=== PATIENT | male | born 1975 | race Caucasian/White ===

== ENCOUNTER 2016-07-31 19:38 | Emergency (ER) | payer OTHER ==
[2016-07-31 19:50] VITALS: PULSE 68; BMI 23.3
--- NOTE | 2016-07-31 20:11 | PDOC ---
History of Present Illness - General History Source: Patient - History of Present Illness Initial Comments: 07/31/16 21:18 The patient is a 40 year old male with no significant past medical history, who presents to the ER s/p falling off a ladder this morning. Patient reports he was standing on a ladder while painting his kitchen crow. He states as he was leaning to one side, the ladder tipped and patient fell on top of the ladder. Patient says he sustained an abrasion on the anterior chest wall. Denies loss of consciousness Denies head or neck trauma Denies dizziness Denies nausea, vomiting Denies active bleeding <UtrubyArabella - Last Filed: 07/31/16 21:17> - General History Source: Patient <John Wheeler - Last Filed: 07/31/16 21:39> - General Chief Complaint: Injury Stated Complaint: FALL/INJURY Time Seen by Provider: 07/31/16 20:06 Past History <Utruby,Arabella - Last Filed: 07/31/16 21:17> - Immunization History Immunization Up to Date: Yes - Psycho/Social/Smoking Cessation Hx Anxiety: No Suicidal Ideation: No Smoking Status: No Smoking History: Never smoked Number of Cigarettes Smoked Daily: 0 Hx Alcohol Use: No Substance Use Type: None <John Wheeler - Last Filed: 07/31/16 21:39> - Past Medical History Allergies/Adverse Reactions: Allergies Allergy/AdvReac Type Severity Reaction Status Date / Time No Known Allergies Allergy Verified 07/31/16 20:50 Home Medications: Ambulatory Orders NK [No Known Home Medication] 07/31/16 Review of Systems - Review of Systems Able to Perform ROS?: Yes Comments:: 07/31/16 21:18 CONSTITUTIONAL: Absent: fever, no chills, no fatigue EYES: Absent: visual changes ENT: Absent: ear pain, no sore throat CARDIOVASCULAR: Absent: chest pain, no palpitations RESPIRATORY: Absent: cough, no SOB GI: Absent: abdominal pain, no nausea, no vomiting, no constipation, no diarrhea GENITOURINARY: Absent: dysuria, no frequency, no hematuria MUSCULOSKELETAL: Absent: back pain, no arthralgia, no myalgia SKIN: Present: (+) abrasion on anterior chest wall Absent: rash NEURO: Absent: headache <Uts,Arabella - Last Filed: 07/31/16 21:17> *Physical Exam - Vital Signs Last Vital Signs Temp Pulse Resp BP Pulse Ox 98.7 F 68 18 117/60 98 07/31/16 19:48 07/31/16 19:48 07/31/16 19:48 07/31/16 19:48 07/31/16 19:48 - Physical Exam Comments: 07/31/16 21:18 GENERAL: Well-appearing, well-nourished. No apparent distress. HEENT: Normocephalic, atraumatic. PERRL, EOM intact. CARDIOVASCULAR: Normal S1, S2. Regular rate and rhythm. PULMONARY: Clear to auscultation bilaterally. ABDOMEN: Soft, non-distended, non-tender. EXTREMITIES: Normal ROM in all four extremities. No gross deformities. SKIN: Superficial abrasion on anterior lower left ribs NEUROLOGICAL: No focal neurological deficits. <Arabella Hope - Last Filed: 07/31/16 21:17> - Vital Signs Last Vital Signs Temp Pulse Resp BP Pulse Ox 98.7 F 68 18 117/60 98 07/31/16 19:48 07/31/16 19:48 07/31/16 19:48 07/31/16 19:48 07/31/16 19:48 <John Wheeler - Last Filed: 07/31/16 21:39> Medical Decision Making - Medical Decision Making 07/31/16 21:39 Dr. Wheeler: The scribe's documentation has been prepared under my direction and personally reviewed by me in its entirery. I confirm that the note above accurately reflects all work, treatment, procedures, and medical decision making performed by me. <John Wheeler - Last Filed: 07/31/16 21:39> *DC/Admit/Observation/Transfer - Attestations Scribe Attestion: 07/31/16 21:19 Documentation prepared by Arabella Hope, acting as medical records field technician for John Wheeler DO. <Arabella Hope - Last Filed: 07/31/16 21:17> - Discharge Dispostion Admit: No <John Wheeler - Last Filed: 07/31/16 21:39> Diagnosis at time of Disposition: Contusion of left chest wall Qualifiers: Encounter type: initial encounter Qualified Code(s): S20.212A - Contusion of left front wall of thorax, initial encounter - Discharge Dispostion Disposition: HOME Condition at time of disposition: Stable - Patient Instructions Printed Discharge Instructions: DI for Chest Pain, DI for Rib Contusion
[2016-07-31 21:52] VITALS: BP 118/64; TEMP 98.4
--- NOTE | 2016-08-05 11:43 | EKG ---
Test Reason : Blood Pressure : / mmHG Vent. Rate : 052 BPM Atrial Rate : 052 BPM P-R Int : 120 ms QRS Dur : 090 ms QT Int : 390 ms P-R-T Axes : 066 012 021 degrees QTc Int : 362 ms SINUS BRADYCARDIA POSSIBLE LEFT ATRIAL ENLARGEMENT BORDERLINE ECG WHEN COMPARED WITH ECG OF 09-FEB-2011 17:27, QT HAS SHORTENED Confirmed by JASON BECKER, VIRY ([id number]) on 08/05/2016 11:42:55 AM Referred By: Confirmed By:VIRY GOMEZ MD
== END 2016-07-31 21:49 | disposition home or self-care (01) ==
LOC: JER 19:38
DX: S20.212A Contusion of left front wall of thorax, initial encounter (principal); S20.312A Abrasion of left front wall of thorax, initial encounter; W11.XXXA Fall on and from ladder, initial encounter; Y93.E9 Activity, other interior property and clothing maintenance; Y92.030 Kitchen in apartment as the place of occurrence of the external cause
CPT/HCPCS: 71250-TC; 93005; 93010; 99282-25

== ENCOUNTER 2018-06-02 17:41 | Emergency (ER) | payer OTHER ==
--- NOTE | 2018-06-02 17:55 | PDOC ---
Rapid Medical Evaluation Medical Evaluation: Allergies Allergy/AdvReac Type Severity Reaction Status Date / Time No Known Allergies Allergy Verified 07/31/16 20:50 I have performed a brief in-person evaluation of this patient. The patient presents with a chief complaint of: c/o LLQ abd pain from today; denies fever, n/v, hematuria, dysuria, testicular pain; is voiding normally; states urine with strong odor Pertinent physical exam findings: In NAD, abdomen soft/ND/NT, no CVA tenderness I have ordered the following: UA, UCx The patient will proceed to the ED for further evaluation. 06/02/18 17:52
[2018-06-02 17:57] VITALS: BP 100/64; PULSE 19; TEMP 98; BMI 22.4
[2018-06-02 18:25] LABS: EPI CELLS 0.2 /HPF (FEW); URINE APPEARANCE CLEAR; URINE BACTERIA 1.008 /hpf (NEGATIVE); URINE BILIRUBIN NEGATIVE (<2.0 mg/dL); URINE CASTS 1 /hpf (NEGATIVE); URINE COLOR YELLOW; URINE GLUCOSE (UA) NEGATIVE (NEGATIVE); URINE KETONE NEGATIVE (NEGATIVE); URINE LEUK ESTERASE NEGATIVE (NEGATIVE); URINE NITRITE NEGATIVE (NEGATIVE); URINE PROTEIN NEGATIVE (NEGATIVE); URINE RBC 1 /hpf (0-3); URINE UROBILINOGEN 0.2 mg/dL (0.2-1.0); URINE WBC 0 /hpf (3-5)
--- NOTE | 2018-06-02 18:49 | PDOC ---
History of Present Illness - General Chief Complaint: Urinary Problem Stated Complaint: R/o UTI c/o strong urinary odor Time Seen by Provider: 06/02/18 17:52 - History of Present Illness Initial Comments: 06/02/18 18:47 42-year-old male without comorbidities presents for evaluation of urinary retention. He states he was unable to urinate last night he felt some left- sided lower abdominal pain went to sit on his bed and then later was able to pass urine. The episode happened once again overnight. And he reports to the emergency room for further evaluation. He denies systemic symptoms and associated pain at this point. Past History - Past Medical History Allergies/Adverse Reactions: Allergies Allergy/AdvReac Type Severity Reaction Status Date / Time No Known Allergies Allergy Verified 06/02/18 17:58 Home Medications: Ambulatory Orders NK [No Known Home Medication] 07/31/16 COPD: No - Immunization History Immunization Up to Date: Yes - Suicide/Smoking/Psychosocial Hx Smoking Status: No Smoking History: Never smoked Number of Cigarettes Smoked Daily: 0 Information on smoking cessation initiated: No Hx Alcohol Use: No Drug/Substance Use Hx: No Substance Use Type: None Review of Systems - Review of Systems Constitutional: No: Fever : Yes: See HPI *Physical Exam - Vital Signs Last Vital Signs Temp Pulse Resp BP Pulse Ox 98 F 19 L 17 100/64 100 06/02/18 17:54 06/02/18 17:54 06/02/18 17:54 06/02/18 17:54 06/02/18 17:54 - Physical Exam Comments: 06/02/18 18:48 HEAD: NC/AT EYES: Conjuntiva clear Ears: Canals and TM's normal NOSE: No d/c THROAT: Moist mucous membrances, oral pharanx clear, uvula midline NECK: Supple without adenopathy CARDIAC: S1 S2 LUNGS: CTA Full and Equal breath sounds ABDOMEN: Soft NT ND mild left lower quadrant tenderness MS: Full ROM in all joints without edema NEUROLOGIC: No gross sensory or motor deficits, NVID SKIN: Normal color and temperature no lesions or rashes Moderate Sedation - Procedure Monitoring Vital Signs: Procedure Monitoring Vital Signs Temperature 98 F 06/02/18 17:54 Pulse Rate 19 L 06/02/18 17:54 Respiratory Rate 17 06/02/18 17:54 Blood Pressure 100/64 03/20/19 17:54 O2 Sat by Pulse Oximetry (%) 100 06/02/18 17:54 ED Treatment Course - LABORATORY CBC & Chemistry Diagram: 06/02/18 18:51 06/02/18 18:51 - ADDITIONAL ORDERS Additional order review: Laboratory Results 06/02/18 18:13 Urine Color Yellow Urine Appearance Clear Urine pH 6.0 Ur Specific [place] 1.020 Urine Protein Negative Urine Glucose (UA) Negative Urine Ketones Negative Urine Blood Negative Urine Nitrite Negative Urine Bilirubin Negative Urine Urobilinogen 0.2 Ur Leukocyte Esterase Negative Urine WBC (Auto) 0 Urine RBC (Auto) 1 Urine Casts (Auto) 1 U Epithel Cells (Auto) 0.2 Urine Bacteria (Auto) 1.008 - RADIOLOGY Radiology Studies Ordered: Category Date Time Status ABDOMEN & PELVIS CT W/O CONTR [CT] Stat CT Scan 06/02/18 18:46 Ordered Medical Decision Making - Medical Decision Making 06/02/18 21:23 No renal stone or obstructing stone. Patient was informed of his CAT scan results regarding the gallbladder and fecal material inside:. He will follow up with his primary care physician. He has no right upper quadrant tenderness. He may most likely have passed the stone at this point I will have him follow-up with his PCP *DC/Admit/Observation/Transfer Diagnosis at time of Disposition: Dysuria - Discharge Dispostion Disposition: HOME Condition at time of disposition: Stable Decision to Admit order: No - Referrals Referrals: Alex Jackson [Non Staff, Medical] - - Patient Instructions Printed Discharge Instructions: DI for Dysuria -- Adult Additional Instructions: Return to the emergency room for worsening symptoms. Please follow-up with your primary care physician one to 2 days for further evaluation and treatment options. Your CAT scan did not show any kidney stones or up struct and stones. It did show an enlarged gallbladder and a moderate amount of stool in her colon. Please follow-up with your primary care physician for further evaluation and treatment options. And again return to the emergency room should symptoms worsen or go unresolved. - Post Discharge Activity
[2018-06-02 18:58] LABS: BASO % 0.9 % (0-2.0); EOS % 3.1 % (0-4.5); HEMATOCRIT 42.1 % (35.4-49); HEMOGLOBIN 14.7 GM/dL (11.7-16.9); LYMPH % 27.6 % (8-40); MCH 34.6 pg (25.7-33.7); MEAN CELL VOLUME 98.7 fl (80-96); MEAN PLT VOLUME 8.7 fl (7.5-11.1); MONO % 13.1 % (3.8-10.2); NEUT % 55.3 % (42.8-82.8); PLATELET COUNT 217 K/MM3 (134-434); RBC 4.26 M/mm3 (4.00-5.60); RDW 13.2 % (11.9-15.9); WHITE BLOOD COUNT 7.2 K/mm3 (4.0-10.0)
[2018-06-02 19:26] LABS: ALBUMIN 4.1 g/dl (3.4-5.0); ALK PHOS 67 U/L (45-117); ANION GAP 5 MMOL/L (8-16); BILIRUBIN,TOTAL 0.1 mg/dL (0.2-1); BLOOD UREA NITROGEN 21 mg/dL (7-18); CALCIUM 9.2 mg/dL (8.5-10.1); CHLORIDE 101 mmol/L (98-107); CO2 30 mmol/L (21-32); CREATININE 0.8 mg/dL (0.55-1.3); GLUCOSE,RANDOM 83 mg/dL (74-106); POTASSIUM 4.1 mmol/L (3.5-5.1); SGOT/AST 18 U/L (15-37); SGPT/ALT 26 U/L (13-61); SODIUM 135 mmol/L (136-145); TOT PROT 7.3 g/dl (6.4-8.2)
== END 2018-06-02 21:33 | disposition home or self-care (01) ==
LOC: JERFT 17:41
DX: R30.0 Dysuria (principal)
CPT/HCPCS: 36415; 74176-TC; 80053; 81003; 85025; 87086; 99281-25

== ENCOUNTER 2018-08-03 17:45 | Emergency (ER) | payer OTHER ==
--- NOTE | 2018-08-03 17:49 | PDOC ---
Rapid Medical Evaluation Time Seen by Provider: 08/03/18 17:47 Medical Evaluation: Allergies Allergy/AdvReac Type Severity Reaction Status Date / Time No Known Allergies Allergy Verified 06/02/18 17:58 08/03/18 17:48 I have performed a brief in-person evaluation of this patient. The patient presents with a chief complaint of: penile irritation Pertinent physical exam findings:stable and in NAD, non-focal I have ordered the following:std screening, hiv testing The patient will proceed to the ED for further evaluation.
[2018-08-03 17:50] VITALS: BP 119/70; PULSE 63; TEMP 98; BMI 23.3
[2018-08-03] MEDS ORDERED: AZITHROMYCIN 500 MG TABLET PO ONE (18:22)
--- NOTE | 2018-08-03 18:25 | PDOC ---
History of Present Illness - General Chief Complaint: Pain Stated Complaint: GROIN PAIN, penis irritation, wants STD test Time Seen by Provider: 08/03/18 17:47 History Source: Patient Exam Limitations: No Limitations - History of Present Illness Travel History: No Initial Comments: 08/03/18 18:21 42 year old male with no significant medical or surgical history presents with complaints of penile irritation x 3 weeks. Patient admits to unprotected intercourse 1 month ago, now with burning with urination and intercourse. Also complaining of irritation of penis. Denies penile discharge or testicular pain. 08/03/18 18:26 Timing/Duration: reports: changing over time Quality: reports: moderate Pain Radiation: reports: no radiation Activities at Onset: reports: none Aggravating Factors: improves with: None Alleviating Factors: improves with: None Past History - Travel Traveled outside of the country in the last 30 days: No Close contact w/someone who was outside of country & ill: No - Past Medical History Allergies/Adverse Reactions: Allergies Allergy/AdvReac Type Severity Reaction Status Date / Time No Known Allergies Allergy Verified 08/03/18 17:50 Home Medications: Ambulatory Orders Clotrimazole [Lotrimin 1% Cream -] 1 applic TP BID #1 tube 08/03/18 COPD: No - Immunization History Immunization Up to Date: Yes - Suicide/Smoking/Psychosocial Hx Smoking Status: No Smoking History: Never smoked Number of Cigarettes Smoked Daily: 0 Information on smoking cessation initiated: No Hx Alcohol Use: No Drug/Substance Use Hx: No Substance Use Type: None Abd/GI Specific PMHX - Complaint Specific PMHX Colitis: No Diverticulitis: No Gall Bladder Disease: No GERD: No Hepatitis: No Pancreatitis: No Review of Systems - Review of Systems Able to Perform ROS?: Yes Is the patient limited Burmese proficient: No Constitutional: No: Chills, Fever HEENTM: No: Nose Congestion Respiratory: No: Orthopnea Cardiac (ROS): No: Chest Pain, Lightheadedness ABD/GI: No: Constipated, Poor Appetite, Indigestion : Yes: Dysuria, Other (irritation of penis, burning with urination) Musculoskeletal: No: Back Pain, Muscle Weakness Integumentary: No: Bruising, Erythema Neurological: No: Numbness, Weakness *Physical Exam - Vital Signs Last Vital Signs Temp Pulse Resp BP Pulse Ox 98 F 63 17 119/70 99 08/03/18 17:49 08/03/18 17:49 08/03/18 17:49 08/03/18 17:49 08/03/18 17:49 - Physical Exam General Appearance: Yes: Nourished, Appropriately Dressed HEENT: positive: JESSE, Pharynx Normal Neck: positive: Supple. negative: Lymphadenopathy (R), Lymphadenopathy (L) Respiratory/Chest: positive: Lungs Clear Cardiovascular: positive: Regular Rhythm, Regular Rate Male Genitalia: positive: other (irritation and excoriations noted at tip of penis under foreskin, with some scaliness, no discharge at meatus, palpable inguinal nodes) Musculoskeletal: positive: Normal Inspection Extremity: positive: Normal Capillary Refill Neurologic: positive: Fully Oriented, Alert Medical Decision Making - Medical Decision Making 08/03/18 18:28 42 year old male with no significant medical or surgical history presents with complaints of penile irritation x 3 weeks. Plan std screening ordered in [facility] hsv culture obtained presumptive treatment with ceftriaxone and azithromycin rx:lotrimin d/c home f/u with pmd *DC/Admit/Observation/Transfer Diagnosis at time of Disposition: Irritation of penis, Screening examination for STD (sexually transmitted disease) - Discharge Dispostion Disposition: HOME Condition at time of disposition: Good Decision to Admit order: No - Prescriptions Prescriptions: Clotrimazole [Lotrimin 1% Cream -] 1 applic TP BID #1 tube - Referrals - Patient Instructions Printed Discharge Instructions: Facts About Sexually Transmitted Infections Additional Instructions: Please refrain from all sexual intercourse with or without condoms for 7 days Use condoms in the future for prevention of std Call doctor for follow up - Post Discharge Activity Forms/Work/School Notes: Back to Work
[2018-08-03] MEDS ORDERED: AZITHROMYCIN 500 MG TABLET ONE (18:46)
== END 2018-08-03 19:20 | disposition home or self-care (01) ==
LOC: JERFT 17:45
DX: Z11.3 Encounter for screening for infections with a predominantly sexual mode of transmission (principal); N48.89 Other specified disorders of penis
CPT/HCPCS: 36415; 86593; 87255; 87389; 87491; 87591; 96372; 99281-25

== ENCOUNTER 2019-05-12 19:02 | Emergency (ER) | payer OTHER ==
[2019-05-12 19:10] VITALS: TEMP 97.8; BMI 23.3
--- NOTE | 2019-05-12 20:19 | PDOC ---
History of Present Illness - General Chief Complaint: Pain Stated Complaint: COUGH Time Seen by Provider: 05/12/19 20:07 History Source: Patient Exam Limitations: No Limitations Past History - Past Medical History Allergies/Adverse Reactions: Allergies Allergy/AdvReac Type Severity Reaction Status Date / Time No Known Allergies Allergy Verified 05/12/19 19:06 Home Medications: Ambulatory Orders Paroxetine HCl [Paxil] 20 mg PO DAILY 05/12/19 COPD: No - Immunization History Immunization Up to Date: Yes - Psycho Social/Smoking Cessation Hx Smoking Status: No Smoking History: Never smoked Number of Cigarettes Smoked Daily: 0 Hx Alcohol Use: No Drug/Substance Use Hx: No Substance Use Type: None *Physical Exam - Vital Signs Last Vital Signs Temp Pulse Resp BP Pulse Ox 97.8 F 71 18 112/67 100 05/12/19 19:07 05/12/19 19:07 05/12/19 19:07 05/12/19 19:07 05/12/19 19:07 - Physical Exam General Appearance: No: Apparent Distress HEENT: positive: Normal Voice, Nasal Congestion (mild L nasal congesiton). negative: Muffled/Hoarse voice, Pharyngeal Erythema, Tonsillar Exudate, Tonsillar Erythema, Rhinorrhea, Sinus Tenderness Respiratory/Chest: positive: Lungs Clear, Normal Breath Sounds. negative: Respiratory Distress Cardiovascular: positive: Regular Rhythm, Regular Rate, S1, S2. negative: Murmur Neurologic: positive: Alert ED Treatment Course - RADIOLOGY Radiology Studies Ordered: Category Date Time Status CHEST PA & LAT [RAD] Stat Radiology 05/12/19 20:15 Ordered Medical Decision Making - Medical Decision Making 43 y/o M with no sig pmh presents with dry cough x 2 months. States cough is not too bad; it's mild in nature, but not sure why it has not stopped. Has not tried anything for his cough and has not yet seen anyone regarding the cough. Denies fever, throat pain, sneezing, postnasal drip, sob, cp, abd pain, n/v. Patient is not taking any medications. Denies smoking or drug use. Chronic cough x 2 months Otherwise well appearing, normal breath sounds Plan: CXR 05/12/19 20:17 CXR wet read negative Could be allergies vs viral Supportive care discussed 05/12/19 20:49 Discharge - Discharge Information Problems reviewed: Yes Clinical Impression/Diagnosis: Cough Condition: Stable Disposition: HOME - Admission No - Additional Discharge Information Prescription Drug Monitoring Program (I-STOP) results: I-STOP not reviewed - Follow up/Referral - Patient Discharge Instructions Patient Printed Discharge Instructions: DI for Cough -- Adult Additional Instructions: Thank you for choosing [facility]. It was a pleasure taking care of you. Try Flonase nasal spray (2 puffs in each nostril x 1 week) along with Nedi-Pot to help with congestion You may also try Robitussing, available over the counter, to see if it helps with cough Follow-up in primary care clinic for further evaluation Return to the Emergency Department if your symptoms worsen or persist or have other concerning symptoms. - Post Discharge Activity
[2019-05-12 22:36] VITALS: BP 125/73; PULSE 67
--- NOTE | 2019-05-12 23:29 | PDOC ---
*Physical Exam - Vital Signs Last Vital Signs Temp Pulse Resp BP Pulse Ox 97.8 F 67 18 125/73 97 05/12/19 19:07 05/12/19 20:30 05/12/19 20:30 05/12/19 20:30 05/12/19 20:30 Medical Decision Making - Medical Decision Making 05/12/19 23:28 Case reviewed, agree with assessment and plan Discharge - Discharge Information Problems reviewed: Yes Clinical Impression/Diagnosis: Cough Condition: Stable Disposition: HOME - Follow up/Referral - Patient Discharge Instructions Patient Printed Discharge Instructions: DI for Cough -- Adult Additional Instructions: Thank you for choosing [facility]. It was a pleasure taking care of you. Try Flonase nasal spray (2 puffs in each nostril x 1 week) along with Nedi-Pot to help with congestion You may also try Robitussing, available over the counter, to see if it helps with cough Follow-up in primary care clinic for further evaluation Return to the Emergency Department if your symptoms worsen or persist or have other concerning symptoms. - Post Discharge Activity
== END 2019-05-12 21:00 | disposition home or self-care (01) ==
LOC: JER 19:02
DX: R05 Cough (principal)
CPT/HCPCS: 71046-TC-FY; 99283-25

== ENCOUNTER 2020-09-14 17:40 | Emergency (ER) | payer OTHER ==
[2020-09-14 17:58] VITALS: BP 109/68; PULSE 68; TEMP 98.5; BMI 23.2
== END 2020-09-14 18:32 | disposition home or self-care (01) ==
LOC: JERFT 17:40
DX: M25.512 Pain in left shoulder (principal); R22.32 Localized swelling, mass and lump, left upper limb
CPT/HCPCS: 99281-25

== ENCOUNTER 2021-09-11 16:18 | Emergency (ER) | payer OTHER ==
[2021-09-11 16:28] VITALS: BP 108/70; PULSE 81; TEMP 98; BMI 22.4
== END 2021-09-11 17:08 | disposition home or self-care (01) ==
LOC: JERFT 16:18
DX: S93.491A Sprain of other ligament of right ankle, initial encounter (principal); X50.0XXA Overexertion from strenuous movement or load, initial encounter
CPT/HCPCS: 73610-TC-RT-FY; 73630-TC-RT-FY; 99283-25

== ENCOUNTER 2021-10-29 17:06 | Emergency (ER) | payer OTHER ==
[2021-10-29 17:13] VITALS: BP 112/75; PULSE 79; RESP 18; TEMP 98; BMI 22.8
== END 2021-10-29 18:38 | disposition home or self-care (01) ==
LOC: JER 17:06
DX: R21 Rash and other nonspecific skin eruption (principal)
CPT/HCPCS: 36415; 87593; 99283-25

== ENCOUNTER 2021-11-08 07:50 | Emergency (ER) | payer OTHER ==
[2021-11-08 08:16] VITALS: BP 114/82; PULSE 71; RESP 18; TEMP 97.1; BMI 22.4
[2021-11-08] MEDS ORDERED: KETOROLAC TROMETHAMINE 60 MG/2 ML VIAL IM ONE (09:29)
[2021-11-08] MEDS ORDERED: KETOROLAC TROMETHAMINE 30 MG/1 ML VIAL ONE (09:38)
== END 2021-11-08 17:04 | disposition home or self-care (01) ==
LOC: JERFT 07:50 → JER 07:50 → JERFT 17:04
PROC: 3E023GC Introduction of Other Therapeutic Substance into Muscle, Percutaneous Approach (ICD-10-PCS; principal; 2021-11-08)
DX: M54.50 Low back pain, unspecified (principal); W19.XXXA Unspecified fall, initial encounter
CPT/HCPCS: 72100-TC-FY; 72131-TC; 72170-TC-FY; 72192-TC; 99284-25

== ENCOUNTER 2023-04-18 13:32 | Emergency (ER) | payer OTHER ==
[2023-04-18 13:53] VITALS: RESP 18; BMI 21.7
[2023-04-18] MEDS ORDERED: SODIUM CHLORIDE 0.9% 500 ML INFUS.BAG IV ONE (14:43)
[2023-04-18] MEDS ORDERED: ONDANSETRON 4 MG/2 ML VIAL IVPUSH ONE (14:43)
[2023-04-18] MEDS ORDERED: FAMOTIDINE 20 MG/50 ML IVPB 20 MG/50 ML MG IVPB ONE (14:44)
[2023-04-18] MEDS ORDERED: ONDANSETRON 4 MG/2 ML VIAL ONE (15:08)
[2023-04-18] MEDS ORDERED: FAMOTIDINE 10 MG/ML VIAL IVPB ONE (15:08)
[2023-04-18 15:46] LABS: BASO % 0.3 % (0-2.0); EOS % 0.4 % (0-4.5); HEMATOCRIT 41.2 % (35.4-49); HEMOGLOBIN 14.1 GM/dL (11.7-16.9); LYMPH % 13.1 % (8-40); MCHC 34.2 g/dl (32.0-35.9); MEAN CELL VOLUME 96.6 fl (80-96); MEAN PLT VOLUME 9.3 fl (7.5-11.1); MONO % 12.8 % (3.8-10.2); NEUT % 73.4 % (42.8-82.8); PLATELET COUNT 225 10^3/uL (134-434); RBC 4.26 M/mm3 (4.00-5.60); RDW 13.3 % (11.9-15.9); WHITE BLOOD COUNT 11.8 K/mm3 (4.0-10.0)
[2023-04-18 16:05] LABS: POTASSIUM 4.2 mmol/L (3.5-5.1)
[2023-04-18 16:07] LABS: ALBUMIN 3.7 g/dl (3.4-5.0); BLOOD UREA NITROGEN 16.4 mg/dL (7-18); CALCIUM 9.1 mg/dL (8.5-10.1)
[2023-04-18 16:11] LABS: TOT PROT 7.5 g/dl (6.4-8.2)
[2023-04-18 16:13] LABS: BILIRUBIN,TOTAL 0.5 mg/dL (0.2-1)
[2023-04-18 16:21] VITALS: BP 101/64; PULSE 58; TEMP 99.3
[2023-04-18 16:37] LABS: PH,URINE 6.5 (5.0-8.0); URINE APPEARANCE CLEAR; URINE BILIRUBIN NEGATIVE (NEGATIVE); URINE COLOR YELLOW; URINE GLUCOSE (UA) NEGATIVE (NEGATIVE); URINE KETONE NEGATIVE (NEGATIVE); URINE LEUK ESTERASE NEGATIVE (NEGATIVE); URINE NITRITE NEGATIVE (NEGATIVE); URINE PROTEIN NEGATIVE (NEGATIVE); URINE UROBILINOGEN 0.2 mg/dL (0.2-1.0)
== END 2023-04-18 18:34 | disposition home or self-care (01) ==
LOC: JER 13:32
PROC: 3E033GC Introduction of Other Therapeutic Substance into Peripheral Vein, Percutaneous Approach (ICD-10-PCS; principal; 2023-04-18)
PROC: 3E033GC Introduction of Other Therapeutic Substance into Peripheral Vein, Percutaneous Approach (ICD-10-PCS; 2023-04-18)
DX: R11.0 Nausea (principal); R19.7 Diarrhea, unspecified
CPT/HCPCS: 36415; 80053; 81003; 85025; 99284-25